=== PATIENT | male | born 1980 | race African-American/Black ===

== ENCOUNTER 2017-11-07 22:10 | Emergency (ER) | payer OTHER ==
[~2017-11-07] VITALS: Ht 195.6 cm; Wt 114.8 kg
[2017-11-08] MEDS ORDERED: PENVK250 (01:43)
[2017-11-08] MEDS ORDERED: NAPR500 (01:43)
[2017-11-08] MEDS ORDERED: DIVA125EC (01:43)
[2017-11-08] MEDS ORDERED: IBUP400 (01:44)
[2017-11-08] MEDS ORDERED: Zithromax250 MG PO (01:52)
== END 2017-11-08 02:33 | disposition home or self-care (01) ==
LOC: ER 22:10
DX: S30.861A Insect bite (nonvenomous) of abdominal wall, initial encounter (principal); F17.200 Nicotine dependence, unspecified, uncomplicated; Z91.030 Bee allergy status; Z88.8 Allergy status to other drugs, medicaments and biological substances; Z79.899 Other long term (current) drug therapy; W57.XXXA Bitten or stung by nonvenomous insect and other nonvenomous arthropods, initial encounter